=== PATIENT | female | born 1935 | race Caucasian/White ===

== ENCOUNTER 2018-05-13 09:37 | Emergency (ER) | payer MEDICARE, OTHER ==
[2018-05-13 11:23] LABS: Absolute Lymphocytes (CBC) 1.1 K/uL (0.7-4.9); Absolute Monocytes 0.6 K/uL (0.1-1.3); Absolute Neutrophil 4.3 K/uL (1.8-8.0); Basophils % 0.6 % (0-1.3); Eosinophils % 1.9 % (0-4.4); Hematocrit 38.2 % (36.0-45.0); Lymphocytes % 18.4 % (15.3-44.8); MPV 9.4 fL (7.6-11.3); Monocytes % 9.9 % (3.3-12.3); RBC Red Blood Cell Count 4.82 M/uL (3.86-4.86)
[2018-05-13 11:39] LABS: Potassium 3.8 mmol/L (3.5-5.1)
--- NOTE | 2018-05-13 12:47 | RAD REPORT ---
EXAM DESCRIPTION: CTAbdomen Pelvis W Contrast - 05/13/2018 12:31 pm CLINICAL HISTORY: Abdominal pain. r/o bowel obstruction;Constipation COMPARISON: No comparisons TECHNIQUE: Biphasic CT imaging of the abdomen and pelvis was performed with 100 ml non-ionic IV cont rast. All CT scans are performed using dose optimization technique as appropriate and may include automated exposure control or mA/KV adjustment according to patient size. FINDINGS: The lung bases are clear.Small hiatal hernia. Diffuse fatty liver is present with several small low-density lesions present. No intrahepatic biliar y dilatation. Spleen, pancreas, adrenal glands and kidneys are within normal limits. No bowel obstruction, free air, free fluid or abscess. Scattered colonic diverticulosis. The appendix is normal. No evidence of significant lymphadenopathy. Bilateral hip arthroplasties are noted which limits pelvic assessment. IMPRESSION: No acute intra-abdominal or pelvic finding.
--- NOTE | 2018-05-13 13:00 | EDPHYS ---
Physician Documentation [facility] Name: Guerda Vásquez Age: 82 yrs Sex: Female : 1935 Arrival Date: 05/13/2018 Time: 09:41 Bed 13 Private MD: out of town, doctor ED Physician Reji Sosa HPI: 05/13 12:53 This 82 yrs old Female presents to ER via Ambulatory with complaints of kb Constipation. 12:53 The patient presents to the emergency department with constipation. Onset: The kb symptoms/episode began/occurred 10 day(s) ago. Possible causes: unknown. The symptoms are aggravated by nothing. The symptoms are alleviated by laxatives. Associated signs and symptoms: Pertinent positives: constipation, Pertinent negatives: abdominal pain, anorexia, belching, diarrhea, dysuria, fever, flatulence, GI bleeding, hematuria, nausea, vaginal discharge, vomiting. Severity of symptoms: At their worst the symptoms were moderate in the emergency department the symptoms are unchanged. The patient has not experienced similar symptoms in the past. The patient has not recently seen a physician. 12:59 Pt reports constipation for about 10 days. States she had some bloody discharge with kb stool 10 days ago, but none since then. States she has taken a few laxatives and has had small bowel movements, but wants to make sure she doesn't have an obstruction.. Historical: - Allergies: 10:28 ambien; ph - PMHx: 10:28 Hypothyroidism; Diabetes - NIDDM; Hypertension; ph - PSHx: 10:28 Hysterectomy; hip sx; ph - Ebola Screening: : No symptoms or risks identified at this time. ROS: 12:52 Constitutional: Negative for fever, chills, and weight loss, Cardiovascular: Negative kb for chest pain, palpitations, and edema, Respiratory: Negative for shortness of breath, cough, wheezing, and pleuritic chest pain, Back: Negative for injury and pain, : Negative for injury, bleeding, discharge, and swelling, MS/Extremity: Negative for injury and deformity, Skin: Negative for injury, rash, and discoloration, Neuro: Negative for headache, weakness, numbness, tingling, and seizure. 12:52 Abdomen/GI: Positive for constipation, Negative for abdominal pain, nausea and vomiting, diarrhea, abdominal cramps, abdominal distension, anorexia. Exam: 12:50 Constitutional: This is a well developed, well nourished patient who is awake, alert, kb and in no acute distress. Head/Face: Normocephalic, atraumatic. Chest/axilla: Normal chest wall appearance and motion. Nontender with no deformity. No lesions are appreciated. Cardiovascular: Regular rate and rhythm with a normal S1 and S2. No gallops, murmurs, or rubs. Normal PMI, no JVD. No pulse deficits. Respiratory: Lungs have equal breath sounds bilaterally, clear to auscultation and percussion. No rales, rhonchi or wheezes noted. No increased work of breathing, no retractions or nasal flaring. Abdomen/GI: Soft, non-tender, with normal bowel sounds. No distension or tympany. No guarding or rebound. No evidence of tenderness throughout. Back: No spinal tenderness. No costovertebral tenderness. Full range of motion. Skin: Warm, dry with normal turgor. Normal color with no rashes, no lesions, and no evidence of cellulitis. MS/ Extremity: Pulses equal, no cyanosis. Neurovascular intact. Full, normal range of motion. Neuro: Awake and alert, GCS 15, oriented to person, place, time, and situation. Cranial nerves II-XII grossly intact. Motor strength 5/5 in all extremities. Sensory grossly intact. Cerebellar exam normal. Normal gait. Vital Signs: 10:27 BP 183 / 98; Pulse 92; Resp 18; Temp 97.7; Pulse Ox 100% on R/A; Weight 68.04 kg; ph Height 5 ft. 2 in. (157.48 cm); Pain 0/10; 13:19 BP 118 / 92; Pulse 85; Resp 18; Pulse Ox 99% ; aj1 10:27 Body Mass Index 27.44 (68.04 kg, 157.48 cm) ph MDM: 10:25 Patient medically screened. kb 12:50 Data reviewed: vital signs, nurses notes. Data interpreted: Pulse oximetry: on room air kb is 100 %. Interpretation: normal. Counseling: I had a detailed discussion with the patient and/or guardian regarding: the historical points, exam findings, and any diagnostic results supporting the discharge/admit diagnosis, lab results, radiology results, the need for outpatient follow up, a family practitioner, to return to the emergency department if symptoms worsen or persist or if there are any questions or concerns that arise at home. 05/13 10:37 Order name: Basic Metabolic Panel; Complete Time: 11:51 kb 05/13 10:37 Order name: CBC with Diff; Complete Time: 11:28 kb 05/13 10:37 Order name: IV Saline Lock; Complete Time: 11:29 kb 05/13 10:37 Order name: Labs collected and sent; Complete Time: 11:29 kb 05/13 10:37 Order name: CT Abd/Pelvis - W/Contrast; Complete Time: 12:48 kb Administered Medications: No medications were administered Disposition: 05/13/18 12:59 Discharged to Home. Impression: Constipation - resovled. - Condition is Stable. - Discharge Instructions: Constipation, Adult, Hdno-ry-[id number]. - Medication Reconciliation Form, Thank You Letter, Antibiotic Education, Prescription Opioid Use form. - Follow up: Emergency Department; When: As needed; Reason: Worsening of condition. Follow up: Private Physician; When: 2 - 3 days; Reason: Recheck today's complaints, Continuance of care, Re-evaluation by your physician. Addendum: 05/15/2018 15:26 Co-signature as Attending Physician, Reji Sosa MD. m a2 Signatures: Dispatcher [employer] Rima Mcdonald, CAN-C MOTORBOAT MECHANIC INBOARD/OUTBOARD-Madeleine Perez RN RN aj1 Jacy Carlson RN RN Reji Jiang MD MD ma2 Corrections: (The following items were deleted from the chart) 05/13 13:21 12:59 05/13/2018 12:59 Discharged to Home. Impression: Constipation - resovled. aj1 Condition is Stable. Forms are Medication Reconciliation Form, Thank You Letter, Antibiotic Education, Prescription Opioid Use. Follow up: Emergency Department; When: As needed; Reason: Worsening of condition. Follow up: Private Physician; When: 2 - 3 days; Reason: Recheck today's complaints, Continuance of care, Re-evaluation by your physician. kb
--- NOTE | 2018-05-13 13:00 | ER ---
Nurse's Notes [facility] Name: Guerda Vásquez Age: 82 yrs Sex: Female : 1935 Arrival Date: 05/13/2018 Time: 09:41 Bed 13 Private MD: out of town, doctor Diagnosis: Constipation-resovled Presentation: 05/13 10:24 Presenting complaint: Patient states: Bright red blood in stool 10 days ago, abdominal ph bloating and constipation today, denies blood in stool at this time, also denies N/V or fever. Transition of care: patient was not received from another setting of care. Onset of symptoms was May 13, 2018. Risk Assessment: Do you want to hurt yourself or someone else? Patient reports no desire to harm self or others. Care prior to arrival: None. 10:24 Method Of Arrival: Ambulatory ph 10:24 Acuity: STEFF 3 ph 13:19 Initial Sepsis Screen: Does the patient meet any 2 criteria? No. Patient's initial aj1 sepsis screen is negative. Does the patient have a suspected source of infection? No. Patient's initial sepsis screen is negative. Historical: - Allergies: 10:28 ambien; ph - PMHx: 10:28 Hypothyroidism; Diabetes - NIDDM; Hypertension; ph - PSHx: 10:28 Hysterectomy; hip sx; ph - Ebola Screening: : No symptoms or risks identified at this time. Screenin:30 Abuse screen: Denies threats or abuse. Denies injuries from another. Nutritional aj1 screening: No deficits noted. Tuberculosis screening: No symptoms or risk factors identified. Fall Risk None identified. Assessment: 10:30 General: Appears in no apparent distress. comfortable, Behavior is calm, cooperative, aj1 appropriate for age. Pain: Denies pain. Neuro: Level of Consciousness is awake, alert, obeys commands, Oriented to person, place, time, situation. Cardiovascular: Patient's skin is warm and dry. Respiratory: Airway is patent Respiratory effort is even, unlabored, Respiratory pattern is regular, symmetrical. GI: Abdomen is non-distended, Bowel sounds present X 4 quads. Abd is soft X 4 quads Reports bloating, constipation. : No signs and/or symptoms were reported regarding the genitourinary system. EENT: No signs and/or symptoms were reported regarding the EENT system. Derm: No signs and/or symptoms reported regarding the dermatologic system. Skin is pink, warm \T\ dry. normal. Musculoskeletal: No signs and/or symptoms reported regarding the musculoskeletal system. Circulation, motion, and sensation intact. 11:39 Reassessment: Patient appears in no apparent distress at this time. No changes from aj1 previously documented assessment. Patient and/or family updated on plan of care and expected duration. Pain level reassessed. Patient is alert, oriented x 3, equal unlabored respirations, skin warm/dry/pink. 12:42 Reassessment: Patient appears in no apparent distress at this time. No changes from aj1 previously documented assessment. Patient and/or family updated on plan of care and expected duration. Pain level reassessed. Patient is alert, oriented x 3, equal unlabored respirations, skin warm/dry/pink. 13:18 Reassessment: Patient appears in no apparent distress at this time. No changes from aj1 previously documented assessment. Patient and/or family updated on plan of care and expected duration. Pain level reassessed. Patient is alert, oriented x 3, equal unlabored respirations, skin warm/dry/pink. Vital Signs: 10:27 BP 183 / 98; Pulse 92; Resp 18; Temp 97.7; Pulse Ox 100% on R/A; Weight 68.04 kg; ph Height 5 ft. 2 in. (157.48 cm); Pain 0/10; 13:19 BP 118 / 92; Pulse 85; Resp 18; Pulse Ox 99% ; aj1 10:27 Body Mass Index 27.44 (68.04 kg, 157.48 cm) ph ED Course: 09:41 Patient arrived in ED. mr 09:42 out of town, doctor is Private Physician. mr 10:25 Rima Najera FNP-C is PHCP. kb 10:25 Reji Sosa MD is Attending Physician. kb 10:27 Triage completed. ph 10:28 Madeleine Summers RN is Primary Nurse. aj1 10:28 Arm band placed on Patient placed in an exam room. ph 10:30 Patient has correct armband on for positive identification. aj1 10:30 No provider procedures requiring assistance completed. aj1 11:26 Inserted saline lock: 20 gauge in left forearm, using aseptic technique. hb 12:31 CT completed. Patient tolerated procedure well. Patient moved to CT via wheelchair. sj Patient moved back from CT. 12:32 CT Abd/Pelvis - W/Contrast In Process Unspecified. EDMS 13:20 IV discontinued, intact, bleeding controlled, No redness/swelling at site. Pressure aj1 dressing applied. Administered Medications: No medications were administered Outcome: 12:59 Discharge ordered by . cuca 13:20 Discharged to home ambulatory, with family. aj1 13:20 Condition: good 13:20 Discharge instructions given to patient, Instructed on discharge instructions, follow up and referral plans. Demonstrated understanding of instructions, follow-up care. 13:21 Patient left the ED. aj1 Signatures: Dispatcher [employer] EDMS Rima Najera, CANADIAN BACON TIER-C CANADIAN BACON TIER-Madeleine Perez RN RN aj1 Nina Rayo Garrett, Jacy Crain RN RN Lizeth Ayala RN RN Corrections: (The following items were deleted from the chart) 12:30 12:29 Reassessment: Patient appears in no apparent distress at this time. No changes aj1 from previously documented assessment. Patient and/or family updated on plan of care and expected duration. Pain level reassessed. Patient is alert, oriented x 3, equal unlabored respirations, skin warm/dry/pink. aj1
== END 2018-05-13 13:21 | disposition home or self-care (01) ==
LOC: ER 09:37
DX: K59.00 Constipation, unspecified (principal); I10 Essential (primary) hypertension; Z88.8 Allergy status to other drugs, medicaments and biological substances
CPT/HCPCS: 36415; 74177; 80048; 85025; 99284; Q9967

== ENCOUNTER 2021-03-17 18:16 | Inpatient (IN) | payer OTHER ==
[2021-03-17 18:43] LABS: Absolute Lymphocytes (CBC) 1.2 K/uL (0.7-4.9); Basophils % 0.4 % (0-1.3); Hematocrit 34.3 % (36.0-45.0); Lymphocytes % 11.2 % (15.3-44.8); MPV 9.6 fL (7.6-11.3); RBC Red Blood Cell Count 4.28 M/uL (3.86-4.86)
[2021-03-17 18:53] LABS: Protime INR 0.99
--- NOTE | 2021-03-17 18:56 | RAD REPORT ---
EXAM DESCRIPTION: CT - CTHCSPWOC - 03/17/2021 6:47 pm CLINICAL HISTORY: Altered mental status COMPARISON: No comparisons TECHNIQUE: Axial 5 mm thick images of the head were obtained. Axial 2 mm thick images of the cervic al spine were obtained with sagittal and coronal reconstruction images generated and reviewed. All CT scans are performed using dose optimization technique as appropriate and may include automated exposure control or mA/KV adjustment according to patient size. FINDINGS: No intracranial hemorrhage, mass, edema or acute intracranial finding. No suspicion for ac [place] infarction. No extra-axial fluid collections. Mastoid air cells are clear. There is mucosal thick ening in the left maxillary sinus. Right maxillary sinus is fully opacified with thickened sclerotic sinus murry. There is extension mucosal changes into the right nasal passage, possibly polyposis. No globe or orbit abnormality seen. Cervical body height and alignment are normal. C5-6 disc space narrowing present. Prominent facet yahaira nt degenerative change present at multiple levels. Left foraminal stenosis results at C4-5. No fractu re or acute bony abnormality. Central canal detail is inherently limited. No paraspinal mass or hematoma. IMPRESSION: Negative CT head examination for acute or significant finding. Chronic right maxillary sinusitis with possible polyposis extending into the right nasal passage. Negative CT cervical spine examination for acute or significant finding. Degenerative changes are pr esent most pronounced at C5-6.
[2021-03-17 19:24] LABS: ALT/SGPT 21 U/L (12-78); AST/SGOT 28 U/L (15-37); Albumin 3.5 g/dL (3.4-5.0); Alkaline Phosphatase 91 U/L (45-117); Amylase 66 U/L (25-115); BUN Blood Urea Nitrogen 10 mg/dL (7-18); Bicarbonate 17 mmol/L (21-32); Bilirubin Direct 0.2 mg/dL (0-0.2); Bilirubin Total 0.8 mg/dL (0.2-1.0); CKMB Creatine Kinase MB 4.2 ng/mL (1.0-3.6); Creatine Phosphokinase 315 U/L (26-192); Glucose Level 196 mg/dL (74-106); Lipase 64 U/L (73-393); Potassium 3.6 mmol/L (3.5-5.1); Protein, Total 7.9 g/dL (6.4-8.2); Troponin (Emerg Dept Use Only) < 0.02 ng/mL (0.0-0.045)
[2021-03-17 19:26] LABS: Sodium Level 119 mmol/L (136-145)
--- NOTE | 2021-03-17 19:33 | RAD REPORT ---
EXAM DESCRIPTION: RAD - Chest Single View - 03/17/2021 7:01 pm CLINICAL HISTORY: Altered mental status COMPARISON: None TECHNIQUE: AP portable chest image was obtained 03/17/2021 7:01 pm . FINDINGS: Lung volumes are low. Stranding at the left base is favored to be atelectasis or possibly scarring. Interstitial infiltrate is possible if there are corresponding clinical findings. No dense consolidation to suspect bacterial pneumonia. No failure or volume overload. Heart and vasculature ar e normal. No measurable pleural effusion and no pneumothorax. No acute bony abnormality seen. No acut e aortic findings suspected. IMPRESSION: Baseline chest examination shows interstitial stranding left base favored to be scarring or atelectasis. Left base viral infiltrate is possible and can be correlated with clinical presentation.
--- NOTE | 2021-03-17 19:45 | EDPHYS ---
Physician Documentation [facility] Name: Guerda Vásquez Age: 85 yrs Sex: Female : 1935 Arrival Date: 03/17/2021 Time: 18:19 Bed 4 Private MD: ED Physician Elisa Cortez HPI: 03/17 18:20 This 85 yrs old Female presents to ER via Unassigned with complaints of kdr Seizure. 18:20 The patient presents after having a single isolated seizure, that lasted an unknown kdr period of time. Character of seizure(s): Loss of consciousness: the patient experienced loss of consciousness, Motor activity: generalized, Began in her hand and move more globally, Apnea: the patient experienced apnea, Patient became bradycardic and hypotensive briefly. EMS also reports that she was hypoxic for a short period of time with her saturations less than 50. She was immediately augmented with [id number].. Seizure onset: just prior to arrival. Context: the seizure(s) was witnessed, by EMS personnel, occurred In ambulance. Seizure Hx: the patient has no previous seizure history. Associated injury: The patient did not suffer any apparent associated injury. EMS care: supplemental oxygen, Supportive care. Current symptoms: confusion. It is unknown whether or not the patient has had similar symptoms in the past. It is unknown whether or not the patient has recently seen a physician. The patient was brought from home where she was living with her son who reported that she was altered since last evening. She is also had some intermittent nausea and vomiting. EMS reports that she vomited on the ambulance in route to the hospital. Historical: - Allergies: 18:21 ambien; bp - PMHx: 18:21 Diabetes - NIDDM; Hypertension; Hypothyroidism; bp - Immunization history:: Adult Immunizations unknown. - Social history:: Smoking status: unknown. ROS: 18:20 Constitutional: Unable to obtain secondary to altered mental status and postictal kdr status 18:20 Unable to obtain ROS due to altered mental status. Exam: 18:22 Constitutional: This is a well developed, well nourished patient who is in apparent kdr postictal state with mild distress. Head/Face: Normocephalic, atraumatic. Eyes: Pupils equal round and reactive to light, extra-ocular motions intact. Lids and lashes normal. Conjunctiva and sclera are non-icteric and not injected. Cornea within normal limits. Periorbital areas with no swelling, redness, or edema. Neck: Trachea midline, no thyromegaly or masses palpated, and no cervical lymphadenopathy. Supple, full range of motion without nuchal rigidity, or vertebral point tenderness. No Meningismus. Chest/axilla: Normal chest wall appearance and motion. Nontender with no deformity. No lesions are appreciated. Cardiovascular: Regular rate and rhythm with a normal S1 and S2. No gallops, murmurs, or rubs. Normal PMI, no JVD. No pulse deficits. Respiratory: Lungs have equal breath sounds bilaterally, clear to auscultation and percussion. No rales, rhonchi or wheezes noted. No increased work of breathing, no retractions or nasal flaring. Abdomen/GI: Soft, non-tender, with normal bowel sounds. No distension or tympany. No guarding or rebound. No evidence of tenderness throughout. Back: No spinal tenderness. No costovertebral tenderness. Full range of motion. Skin: Warm, dry with normal turgor. Normal color with no rashes, no lesions, and no evidence of cellulitis. MS/ Extremity: Pulses equal, no cyanosis. Neurovascular intact. Full, normal range of motion. 18:33 ECG was reviewed by the Attending Physician. kdr Vital Signs: 18:21 Pulse 112; Resp 30; Pulse Ox 98% ; Weight 74.84 kg; bp 18:26 BP 183 / 97; Pulse 115; Resp 24 S; Temp 98.0(TE); Pulse Ox 98% on R/A; aa5 18:55 BP 156 / 62; Pulse 90; Resp 16 S; Pulse Ox 78% on R/A; aa5 18:56 Pulse Ox 96% on 2 lpm NC; aa5 Ulices Coma Score: 18:21 Eye Response: spontaneous(4). Verbal Response: none(1). Motor Response: withdraws from bp pain(4). Total: 9. MDM: 19:16 Patient medically screened. sp3 19:40 Data reviewed: vital signs, nurses notes. ED course: Sodium value returned at 119. Will sp3 hold IV fluid bolus and correct slowly with nephrology consultation. With a lactate of 8.6 she is severely dehydrated and will need to be admitted to the hospital. Discussed with hospitalist service will take her under her service as she has no local PCP. Patient is still not fully arousable but showing no signs of seizure activity.. 03/17 18:24 Order name: Amylase, Serum kdr 03/17 18:24 Order name: Basic Metabolic Panel; Complete Time: 19:38 kdr 03/17 18:24 Order name: Blood Culture Adult (2) kdr 03/17 18:24 Order name: CBC with Diff; Complete Time: 19:16 kdr 03/17 18:24 Order name: CPK; Complete Time: 19:38 kdr 03/17 18:24 Order name: Ckmb; Complete Time: 19:38 kdr 03/17 18:24 Order name: LFT's; Complete Time: 19:38 kdr 03/17 18:24 Order name: Lactate; Complete Time: 19:38 kdr 03/17 18:24 Order name: Lipase; Complete Time: 19:38 kdr 03/17 18:24 Order name: Procalcitonin; Complete Time: 19:38 kdr 03/17 18:24 Order name: Protime (+inr); Complete Time: 19:16 kdr 03/17 18:24 Order name: Ptt, Activated; Complete Time: 19:16 kdr 03/17 18:24 Order name: Troponin (emerg Dept Use Only); Complete Time: 19:38 kdr 03/17 18:24 Order name: Urine Microscopic Only; Complete Time: 20:41 kdr 03/17 18:24 Order name: Chest Single View XRAY; Complete Time: 19:38 kdr 03/17 18:24 Order name: CT Head C Spine; Complete Time: 19:16 kdr 03/17 18:25 Order name: Urine Culture kdr 03/17 18:25 Order name: Amylase; Complete Time: 19:38 EDMS 03/17 19:38 Order name: Urine Osmolality; Complete Time: 21:57 la1 03/17 19:38 Order name: Urine Sodium Random; Complete Time: 20:41 la1 03/17 19:38 Order name: Osmolality, Serum; Complete Time: 21:57 la1 03/17 19:38 Order name: TSH; Complete Time: 21:57 la1 03/17 19:38 Order name: T4 Free; Complete Time: 21:57 la1 03/17 19:45 Order name: SARS-COV-2 RT PCR; Complete Time: 21:57 EDMS 03/17 19:52 Order name: Uric Acid la1 03/17 19:53 Order name: Urine Potassium Random; Complete Time: 20:41 la1 03/17 20:48 Order name: Uric Acid; Complete Time: 21:57 EDMS 03/17 22:16 Order name: Lactate Sepsis 2 HR Follow-up EDMS 03/17 18:24 Order name: Accucheck; Complete Time: 18:39 kdr 03/17 18:24 Order name: Cardiac monitoring; Complete Time: 18:39 kdr 03/17 18:24 Order name: EKG - Nurse/Tech; Complete Time: 18:39 kdr 03/17 18:24 Order name: IV Saline Lock - Large Bore; Complete Time: 18:39 kdr 03/17 18:24 Order name: Labs collected and sent; Complete Time: 18:39 kdr 03/17 18:24 Order name: O2 Per Protocol; Complete Time: 18:39 kdr 03/17 18:24 Order name: O2 Sat Monitoring; Complete Time: 18:39 kdr 03/17 18:24 Order name: Urine Dipstick-Ancillary (obtain specimen); Complete Time: 19:06 kdr 03/17 18:24 Order name: [place]; Complete Time: 18:39 kdr 03/17 20:06 Order name: Seizure Precautions; Complete Time: 20:43 la1 EC:33 Rate is 108 beats/min. Rhythm is regular, Sinus tachycardia with No ectopy. QRS Arma is kdr Normal. ME interval is normal. QRS interval is normal. QT interval is normal. Clinical impression: NSR w/ Non-specific ST/T Changes and Sinus tachycardia. Administered Medications: 18:45 Drug: CEREbyx (fosphenytoin) 1 grams Route: IVPB; Site: right wrist; aa5 19:00 Follow up: Response: No adverse reaction; IV Status: Completed infusion aa5 19:42 CANCELLED (Physician Discretion): NS 0.9% (30 ml/kg) 30 ml/kg IV at bolus once; Sepsis bs2 Protocol 20:43 Drug: Sodium Chloride 3 % 150 ml Volume: 500 ml; Route: IV; Rate: 50 ml/hr; Site: right bs2 wrist; Disposition Summary: 03/17/21 19:44 Hospitalization Ordered Hospitalization Status: Inpatient Admission sp3 Provider: Akira Bonilla sp3 Condition: Fair sp3 Problem: new sp3 Symptoms: have worsened sp3 Bed/Room Type: Standard sp3 Location: Intensive Care Unit(03/17/21 20:59) cg Room Assignment: 5-(03/17/21 20:59) cg Diagnosis - Hypo-osmolality and hyponatremia sp3 - Altered mental status, unspecified sp3 - Other seizures sp3 - Dehydration sp3 Forms: - Medication Reconciliation Form sp3 - SBAR form sp3 Signatures: Dispatcher [employer] EDMS Benson Petty MD MD kdr Carmelita Cerda RN RN aa5 Juan Randle, SUPERVISOR COKE HANDLING-C SUPERVISOR COKE HANDLING-Cla1 Lizbeth Barrios RN RN cg Shayan Ingram, GABY RN Elisa Cortez MD MD sp3 Pinky Yeboah, RN RN bs2 Corrections: (The following items were deleted from the chart) 19:42 18:24 NS 0.9% (30 ml/kg) 30 ml/kg IV at bolus once; Sepsis Protocol ordered. [facility] bs2 19:42 19:42 NS 0.9% (30 ml/kg) 30 ml/kg IV at bolus once; Sepsis Protocol ordered. bs2 bs2 19:45 19:01 CORONAVIRUS+MR.LAB.BRZ ordered. EDMT EDMT 20:59 19:44 Telemetry/MedSurg (Inpatient) sp3 20:59 19:44 sp3 cg
--- NOTE | 2021-03-17 19:45 | ER ---
Nurse's Notes [facility] Name: Guerda Vásquez Age: 85 yrs Sex: Female : 1935 Arrival Date: 03/17/2021 Time: 18:19 Bed 4 Private MD: Diagnosis: Hypo-osmolality and hyponatremia;Altered mental status, unspecified;Other seizures;Dehydration Presentation: 03/17 18:20 Chief complaint: EMS states: CALLED OUT FOR AMS, SEIZURE WITNESSED ON SCENE. bp Coronavirus screen: At this time, the client does not indicate any symptoms associated with coronavirus-19. Ebola Screen: No symptoms or risks identified at this time. Initial Sepsis Screen: Does the patient meet any 2 criteria? Altered Mental Status. No. Patient's initial sepsis screen is negative. Does the patient have a suspected source of infection? No. Patient's initial sepsis screen is negative. Risk Assessment: Do you want to hurt yourself or someone else? Patient reports no desire to harm self or others. Onset of symptoms was March 17, 2021 at 18:00. Care prior to arrival: Oxygen administered. via AMBU bag. Activity prior to arrival: confused, loss of consciousness, seizure. 18:20 Method Of Arrival: EMS: [facility] bp 18:20 Acuity: STEFF 2 bp Triage Assessment: 18:21 General: Appears distressed, uncomfortable, obese, Behavior is restless, uncooperative. bp Pain: Unable to use pain scale. Does not appear to understand pain scale. EENT: No deficits noted. Neuro: Level of Consciousness is confused, Oriented to none French Binder are equal bilaterally Moves all extremities. Full function. Cardiovascular: Rhythm is sinus tachycardia. Respiratory: Airway is patent. GI: No signs and/or symptoms were reported involving the gastrointestinal system. : No signs and/or symptoms were reported regarding the genitourinary system. Derm: No deficits noted. Musculoskeletal: No deficits noted. Historical: - Allergies: 18:21 ambien; bp - PMHx: 18:21 Diabetes - NIDDM; Hypertension; Hypothyroidism; bp - Immunization history:: Adult Immunizations unknown. - Social history:: Smoking status: unknown. Screenin:21 Abuse screen: Denies threats or abuse. Denies injuries from another. Nutritional bp screening: No deficits noted. Tuberculosis screening: No symptoms or risk factors identified. Fall Risk No fall in past 12 months (0 pts). Secondary diagnosis (15 points) seizures, IV access (20 points). Ambulatory Aid- None/Bed Rest/Nurse Assist (0 pts). Gait- Impaired (20 pts.). Mental Status- Overestimates/Forgets Limitations (15 pts.). Total [place] Fall Scale indicates High Risk Score (45 or more points). Fall prevention measures have been instituted. Side Rails Up X 2 Placed Close to Nursing Station Frequent Obs/Assessments Occuring As available patient and family educated on Fall Prevention Program and Strategies. Assessment: 18:21 General: SEE TRIAGE NOTE. bp 18:39 Reassessment: Pt to CT via stretcher . aa5 18:39 Reassessment: NS bolus per sepsis protocol on hold per Dr. Petty . aa5 18:45 Reassessment: Pt back from CT scan, pt now calm, resting in bed with eyes closed, aa5 respirations even and unlabored, skin is pink/warm/dry. . 19:00 Reassessment: Pt's family at bedside, pt's family updated about wait time for results . aa5 Vital Signs: 18:21 Pulse 112; Resp 30; Pulse Ox 98% ; Weight 74.84 kg; bp 18:26 BP 183 / 97; Pulse 115; Resp 24 S; Temp 98.0(TE); Pulse Ox 98% on R/A; aa5 18:55 BP 156 / 62; Pulse 90; Resp 16 S; Pulse Ox 78% on R/A; aa5 18:56 Pulse Ox 96% on 2 lpm NC; aa5 Ulices Coma Score: 18:21 Eye Response: spontaneous(4). Verbal Response: none(1). Motor Response: withdraws from bp pain(4). Total: 9. ED Course: 18:19 Patient arrived in ED. bp 18:20 Benson Petty MD is Attending Physician. kdr 18:21 Triage completed. bp 18:21 Arm band placed on. bp 18:21 Patient has correct armband on for positive identification. Placed in gown. Bed in low bp position. Call light in reach. Side rails up X2. Seizure precautions initiated. 18:29 Shayan Ingram, RN is Primary Nurse. bp 18:29 Inserted saline lock: 20 gauge in right wrist, using aseptic technique. Blood collected.bp 18:30 Henderson cath inserted, using sterile technique, 16 Fr., by md, balloon inflated, to aa5 gravity drainage. 18:47 CT Head C Spine In Process Unspecified. EDMS 19:00 Chest Single View XRAY In Process Unspecified. EDMS 19:15 Attending Physician role handed off by eBnson Petty MD sp3 19:15 Elisa Cortez MD is Attending Physician. sp3 19:30 Primary Nurse role handed off by Shayan Ingram RN mw2 19:41 Pinky Yeboah RN is Primary Nurse. bs2 19:44 Akira Bonilla DO is Hospitalizing Provider. sp3 20:43 Uric Acid Sent. bs2 20:43 SARS-COV-2 RT PCR Sent. bs2 20:43 T4 Free Sent. bs2 20:43 TSH Sent. bs2 20:43 Osmolality, Serum Sent. bs2 20:43 Urine Osmolality Sent. bs2 20:43 Amylase, Serum Sent. bs2 20:43 Blood Culture Adult (2) Sent. bs2 21:58 No provider procedures requiring assistance completed. Patient admitted, IV remains in bs2 place. Administered Medications: 18:45 Drug: CEREbyx (fosphenytoin) 1 grams Route: IVPB; Site: right wrist; aa5 19:00 Follow up: Response: No adverse reaction; IV Status: Completed infusion aa5 19:42 CANCELLED (Physician Discretion): NS 0.9% (30 ml/kg) 30 ml/kg IV at bolus once; Sepsis bs2 Protocol 20:43 Drug: Sodium Chloride 3 % 150 ml Volume: 500 ml; Route: IV; Rate: 50 ml/hr; Site: right bs2 wrist; Outcome: 19:44 Decision to Hospitalize by Provider. sp3 21:58 Admitted to ICU accompanied by nurse, via stretcher, room ICU 5, on monitor, Report bs2 called to Lizbeth 21:58 Condition: stable 21:58 Instructed on the need for admit. 23:28 Patient left the ED. bb Signatures: Dispatcher [employer] EDMS Benson Petty MD MD kdr Ballard, Brenda, RN RN bb Carmelita Cerda RN RN aa5 Shayan Ingram, GABY RN Randy Rodriguez mw2 Elisa Cortez MD MD sp3 Pinky Yeboah RN RN bs2 Corrections: (The following items were deleted from the chart) 18:30 18:21 Pulse 112bpm; Resp 30bpm; Pulse Ox 98%; bp bp
[2021-03-17] MEDS ORDERED: FOSPHENYTOIN PE 500 MG/10 ML VIAL ONE (19:53)
[2021-03-17] MEDS ORDERED: NA CHLORIDE 0.9% 100 ML ONE (19:54)
[2021-03-17 19:55] LABS: Urine Bacteria <20 /HPF (<20); Urine RBC NONE SEEN /HPF (NONE SEEN)
--- NOTE | 2021-03-17 20:23 | P.HP ---
Certification for Inpatient Patient admitted to: Inpatient With expected LOS: >2 Midnights Patient will require the following post-hospital care: None Practitioner: I am a practitioner with admitting privileges, knowledge of patient current condition, hospital course, and medical plan of care. Services: Services provided to patient in accordance with Admission requirements found in Title 42 Section 412.3 of the Code of Federal Regulations Patient History Date of Service: 03/17/21 Primary Care Provider: None Reason for admission: Hyponatremia, seizure History of Present Illness: 85-year-old female with history of hypertension, hypothyroidism, diabetes most type II presents emergency department for seizure, altered mental status. Family reports that patient lives at home with her daughter and over the course of last day they noticed that she had a couple episodes of vomiting, diarrhea and altered mental status. Patient does not take any diuretics, seems to have an adequate diet, does not drink alcohol. Patient was evaluated in the emergency department labs were significant for sodium 119 chloride 82 lactic acid 8.6 CPK 315. I was contacted by ED provider for admission to ICU for further evaluation and management. Additional labs ordered, nephrology was contacted by me while patient was in the emergency department. Given patient's altered mental status and recent history of seizure it was recommended that patient receive 3% sodium chloride 150 cc at 50 cc an hour over the course of 3 hours. Will admit to ICU for further evaluation and management of hyponatremia, seizure. - Past Medical/Surgical History -: Hypothyroidism -: Hypertension -: Diabetes mellitus type 2 -: Hysterectomy Psychosocial/ Personal History: Patient lives at home with her daughter - Family History Family History: Reviewed- Non-Contributory - Social History Smoking Status: Never smoker Alcohol use: No CD- Drugs: No Caffeine use: Yes Place of Residence: Home Review of Systems is unable to be obtained Physical Examination - Physical Exam General: Confused HEENT: Atraumatic, Normocephalic, Other (Mucous membranes dry) Neck: Supple Respiratory: Clear to auscultation bilaterally Cardiovascular: No edema, Normal S1 S2 Capillary refill: <2 Seconds Gastrointestinal: Normal bowel sounds Musculoskeletal: No contractures, No erythema, No tenderness Integumentary: No tenderness/swelling, No erythema, No warmth Neurological: Normal strength at 5/5 x4 extr, Normal tone, Sensation intact - Studies Laboratory Data (last 24 hrs) 03/17/21 18:29: PT 11.4, INR 0.99, APTT 31.6 03/17/21 18:29: WBC 10.80, Hgb 11.1 L, Hct 34.3 L, Plt Count 271 03/17/21 18:29: Sodium 119 L*, Potassium 3.6, BUN 10, Creatinine 0.88, Glucose 196 H, Total Bilirubin 0.8, AST 28, ALT 21, Alkaline Phosphatase 91, Amylase 66, Lipase 64 L Assessment and Plan - Plan Assessment: Altered mental status/seizure secondary to severe hyponatremia Diabetes most type II Hypertension Hypothyroidism Plan: Altered mental status/seizure secondary to severe hyponatremia: Sodium 119, case discussed at length with nephrology will continue with 3% sodium chloride infusion 150 cc at 50 cc an hour. We will repeat chemistry, urine electrolytes, urinalysis 1 hour after completion of 3% sodium chloride. We will discuss further with nephrology at that time. Diabetes most type II: A [facility] Accu-Cheks sliding scale insulin. A1c. Hypertension: Obtain and continue medications, patient denies taking any diuretic therapy. Hypothyroidism: Thyroid panel pending, continue home medication. DVT PPX: Lovenox Code status: Full Discharge Plan: Home Plan to discharge in: Greater than 2 days - Advance Directives Does patient have a Living Will: No Does patient have a Durable POA for Healthcare: No - Code Status/Comfort Care Code Status Assessed: Yes (Full code) Critical Care: No Time Spent Managing Pts Care (In Minutes): 55
[2021-03-17 20:48] LABS: Thyroid Stimulating Hormone 5.14 uIU/mL (0.360-3.740)
[2021-03-17] MEDS ORDERED: NA CHLORIDE 3% 500 ML ONE (21:29)
[2021-03-17] MEDS ORDERED: INSULIN -REGULAR HUMAN 50 UNIT/0.5 ML ML SQ SCH (22:01)
[2021-03-17] MEDS ORDERED: ONDANSETRON 4 MG/2 ML VIAL IV PRN (22:01)
[2021-03-18 01:08] LABS: Urine Appearance CLEAR (Clear); Urine Bilirubin NEGATIVE (Negative); Urine Blood NEGATIVE (Negative); Urine Color YELLOW (Yellow); Urine Glucose NEGATIVE (Negative); Urine Protein NEGATIVE (Negative); Urine Specific Gravity <=1.005 (1.005-1.030); Urine Urobilinogen 0.2 mg/dL (0.2-1.0); Urine pH 6.5 (5.0-7.0)
[2021-03-18 01:12] LABS: BUN Blood Urea Nitrogen 9 mg/dL (7-18); Bicarbonate 27 mmol/L (21-32); Glucose Level 160 mg/dL (74-106); Potassium 3.8 mmol/L (3.5-5.1); Sodium Level 129 mmol/L (136-145)
[2021-03-18 01:15] LABS: Urine Microscopic Reflex ORDER UMIC
[2021-03-18 01:18] LABS: Urine Bacteria <20 /HPF (<20); Urine RBC <5 /HPF (NONE SEEN)
[2021-03-18] MEDS ORDERED: D5W 1,000 ML IV SCH ×5 (02:00→21:00)
[2021-03-18 05:17] LABS: Absolute Lymphocytes (CBC) 0.6 K/uL (0.7-4.9); Basophils % 0.3 % (0-1.3); Hematocrit 32.4 % (36.0-45.0); Lymphocytes % 4.3 % (15.3-44.8); MPV 9.7 fL (7.6-11.3); RBC Red Blood Cell Count 4.05 M/uL (3.86-4.86)
[2021-03-18 05:46] LABS: UR SODIUM 27 mmol/L (27-287); Urine Appearance CLEAR (Clear); Urine Bilirubin NEGATIVE (Negative); Urine Blood NEGATIVE (Negative); Urine Color YELLOW (Yellow); Urine Glucose 2+ (Negative); Urine Protein NEGATIVE (Negative); Urine Specific Gravity <=1.005 (1.005-1.030); Urine Urobilinogen 0.2 mg/dL (0.2-1.0); Urine pH 6.5 (5.0-7.0)
[2021-03-18 05:47] LABS: Magnesium 1.9 mg/dL (1.8-2.4); Phosphorus 2.3 mg/dL (2.5-4.9); Potassium 3.4 mmol/L (3.5-5.1)
[2021-03-18 05:54] LABS: UR PROTEIN < 5.0 mg/dL (<11.9)
[2021-03-18 06:04] LABS: Urine Microscopic Reflex ORDER UMIC
[2021-03-18 06:05] LABS: Urine Bacteria <20 /HPF (<20); Urine RBC NONE SEEN /HPF (NONE SEEN)
[2021-03-18] MEDS: INSULIN -REGULAR HUMAN 50 UNIT/0.5 ML ML SQ SCH ×5 (06:18→20:51)
[2021-03-18] MEDS: ENOXAPARIN 40 MG/0.4 ML SQ SCH (07:51)
[2021-03-18 08:29] LABS: Blood Morphology Comment NOT SEEN (NOT SEEN); Platelet Estimate ADEQ
[2021-03-18 09:45] LABS: Potassium 2.8 mmol/L (3.5-5.1)
[2021-03-18] MEDS: POTASSIUM CL 40 MEQ in NA CHLORIDE 0.9% 500 ML IV SCH ×2 (11:06→15:00)
[2021-03-18 11:56] LABS: BUN Blood Urea Nitrogen 6 mg/dL (7-18); Bicarbonate 24 mmol/L (21-32); Glucose Level 87 mg/dL (74-106); Potassium 3.5 mmol/L (3.5-5.1); Sodium Level 128 mmol/L (136-145)
[2021-03-18] MEDS ORDERED: NACHLORIDE 0.45% 1,000 ML IV SCH (12:00)
[2021-03-18 16:30] LABS: BUN Blood Urea Nitrogen 5 mg/dL (7-18); Bicarbonate 21 mmol/L (21-32); Glucose Level 77 mg/dL (74-106); Sodium Level 120 mmol/L (136-145)
[2021-03-18 16:35] LABS: Potassium 2.4 mmol/L (3.5-5.1)
[2021-03-18] MEDS ORDERED: POTASSIUM CL SA 10 MEQ TAB PO ONE (18:00)
[2021-03-18] MEDS ORDERED: GLUCAGON 1 MG/VIAL IM PRN (19:35)
[2021-03-18] MEDS ORDERED: D50W 25 GM/50 ML SYRINGE IV PRN (19:35)
[2021-03-18 19:41] LABS: Albumin 2.9 g/dL (3.4-5.0); Bilirubin Total 0.5 mg/dL (0.2-1.0); Magnesium 1.9 mg/dL (1.8-2.4); Phosphorus 1.9 mg/dL (2.5-4.9); Potassium 4.2 mmol/L (3.5-5.1); Protein, Total 6.4 g/dL (6.4-8.2)
--- NOTE | 2021-03-18 20:04 | CON ---
Date of Consultation: 03/18/2021 Chief Complaint: Hyponatremia associated with hyponatremia hyperosmolar/volume depletion. History Of Present Illness: The patient is an 85-year-old woman with history of hypertension, hypoth yroid, diabetes mellitus type 2. She presented to the emergency room because of seizure, altered men ingrid status. Family noted that 2 days prior to this admission, the patient had vomiting, diarrhea, an d confusion. She does not take diuretic. She denies nonsteroidal anti-inflammatory medications. Sh lucia does not have any history of alcohol intake. The patient was evaluated in the emergency room and w as found to have significant hyponatremia, sodium of 119. Lactic acid was 8.6, chloride 82. CPK 315 , and Nephrology was contacted and it was recommended to give 3% sodium chloride at 50 mL/hour for 3 hours, with total dose of 150 mL. Subsequently, sodium level was checked and it was 129. The patien t at that time, received 1 L of D5W per hour and labs were rechecked. This morning, lab wo rk showed sodium 129, potassium 3.8, chloride 93, CO2 of 27, BUN 9, creatinine 0.59, glucose 160. Se rum osmolality was 239, uric acid 5.0, lactic acid improved to 1.4, calcium was 8.8. Then, in the mo rning, blood work at 5 o'clock showed sodium 127, glucose 301, potassium , chloride 90, CO2 of 27, phosphorus 2.3, magnesium 1.9. Subsequently, glucose was up to 414, sodium 120, potassium 2. 8, chloride 87, and CO2 of 26, BUN 6, creatinine 0.87, and fluids were changed to half-normal saline. Although lab work was done again 11 o'clock in the morning and show sodium 128, potassium 3.5, chlo ride 97, CO2 of 24, BUN 6, creatinine 0.57, and calcium 8.6. Potassium replacement was stopped after blood work showed potassium of 3.5. Lab work at 8 o'clock was contaminated with IV fluids which lexy myers infused during the treatment. The patient remains in ICU. She is more alert. She did not have any seizure activity during this ho spital stay and she is responding to questions although she has some hearing impairment and cannot pr ovide review of systems. She is requesting for regular diet to be reduced, and she will be started o n p.o. intake with hydration by mouth. At this point, the patient is receiving half-normal saline, w hich was ordered by hospitalist. Past Medical History: Hypothyroidism, hypertension, diabetes mellitus, hysterectomy. Family History: No kidney disease in the family. Social History: Denies tobacco, alcohol, illicit drugs. Physical Examination: General: The patient is awake, follows commands. Cardiovascular: S1, S2. No edema. Skin: Warm and dry. Abdomen: Soft. Extremities: Normal sensation and normal strength. Lab Work: WBC 10.8, hemoglobin 11.1, hematocrit 34.3, and platelet count 271. Amylase 66, lipase 64 . Impression And Plan: 1. with seizure activity secondary to hyponatremia. Sodium at this time was 119. The matias ent was treated with 3% of sodium chloride to control hyponatremia. Patient was found to have severe hyponatremia hyperosmolar state and was treated with 3% of sodium chloride. Plan is to continue to adjust IV fluid for gradual correction of hyponatremia. At this point, the patient is asymptomatic a nd IV fluids will be adjusted. The patient may need IV hypotonic fluids to prevent hyponatremia over correction. 2.Hypothyroidism. The thyroid panel was pending. Recommend to check cortisol level in a year. The patient is admitted to ICU. She was screened for COVID and further recommendation will be from prim jeannie team. DAYNE/DEAMRIOL Voice ID: [id number] Report ID: [id number]
[2021-03-18] MEDS ORDERED: DESMOPRESSIN 4 MCG/ML AMP SQ ONE (20:14)
[2021-03-19 02:25] LABS: BUN Blood Urea Nitrogen 7 mg/dL (7-18); Bicarbonate 24 mmol/L (21-32); Glucose Level 98 mg/dL (74-106); Potassium 3.6 mmol/L (3.5-5.1); Sodium Level 131 mmol/L (136-145)
[2021-03-19] MEDS ORDERED: DESMOPRESSIN 4 MCG/ML AMP SQ ONE (02:32)
[2021-03-19] MEDS ORDERED: D5W 1,000 ML IV SCH (02:34)
[2021-03-19 05:30] VITALS: BMI 20.7
[2021-03-19] MEDS: INSULIN -REGULAR HUMAN 50 UNIT/0.5 ML ML SQ SCH ×4 (07:30→20:33)
[2021-03-19 08:03] LABS: Absolute Lymphocytes (CBC) 0.8 K/uL (0.7-4.9); Basophils % 0.5 % (0-1.3); Hematocrit 32.1 % (36.0-45.0); Lymphocytes % 10.6 % (15.3-44.8); MPV 9.4 fL (7.6-11.3); RBC Red Blood Cell Count 4.04 M/uL (3.86-4.86)
[2021-03-19 08:16] LABS: BUN Blood Urea Nitrogen 6 mg/dL (7-18); Bicarbonate 24 mmol/L (21-32); Glucose Level 183 mg/dL (74-106); Magnesium 1.8 mg/dL (1.8-2.4); Phosphorus 1.7 mg/dL (2.5-4.9); Potassium 3.6 mmol/L (3.5-5.1); Sodium Level 126 mmol/L (136-145)
[2021-03-19] MEDS: ENOXAPARIN 40 MG/0.4 ML SQ SCH (08:39)
[2021-03-19] MEDS: carvediloL 6.25 MG TAB PO SCH ×2 (11:14→20:15)
[2021-03-19] MEDS ORDERED: MAGNESIUM SULFATE 1 gm IVPB 1 GM/100 ML BAG IV ONE (11:15)
[2021-03-19] MEDS: FUROSEMIDE 20 MG TABLET PO SCH (11:18)
[2021-03-19] MEDS ORDERED: POTASSIUM PHOS 20 MM in NA CHLORIDE 0.9% 500 ML IV ONE (11:30)
[2021-03-19] MEDS: SODIUM CHLORIDE 1 GM TAB PO SCH ×2 (12:01→16:44)
--- NOTE | 2021-03-19 14:47 | PN ---
Date of Progress Note: 03/19/2021 Subjective: The patient was admitted with symptomatic hyponatremia and seizure. The patient was sta rted on 3%, over corrected, started on D5. Then, the patient received a couple of doses of DDAVP yes terday. Physical Examination: Vital Signs: When I saw the patient; blood pressure 176/55, pulse of 91, afebrile. The patient had urine output of 2400. The patient negative of 1 L. Chest: Clear to auscultation. Heart: S1, S2. Regular. Abdomen: Soft, nontender. Extremities: No edema. Laboratory Data: WBC 7.2, H and H 10.6/32.1. Sodium 126, trending down from at 1 o'clock over 6 ion rs, trending down to 126 from 131. Potassium 3.6, bicarb 24, BUN 6, creatinine 0.5, calcium 8.5, daniel sphorus 1.7, magnesium 1.8. Cortisol 33. TSH 5.1. Urine electrolytes; sodium of 29, potassium of 3 , specific gravity less than 1.005. The patient's home medication used to be only enalapril. The pa jose denied taking any nonsteroidal. The patient's uric acid upon presentation is 4.6. Current Medications: The patient on include; 1.Lovenox. 2.Zofran. 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 Questionable with presence of that specific gravity in the urine. Could be diluted urine, but again her urine sodium is 27. T he patient does not look to me as prerenal or dehydration. The patient received DDAVP over the night , but yet has urine output of 2400. I am going to go ahead and start the patient on salt tablet 1 g b.i.d. and Lasix 20 and we will follow up the patient. The patient is going to have lab at 1 o'clock , then we will repeat lab with urine electrolyte in the evening. The patient will follow up improvem ent. 2.Hypokalemia, hypophosphatemia. We will supplement. 3.Hypomagnesemia. We will supplement. 4.Hypertension, not controlled. Given the hyponatremia, I will avoid SOHAIL inhibitor. We will start the patient on carvedilol and we will follow up the patient. The patient is going to also be started on Lasix. SHABANA Voice ID: [id number] Report ID: [id number]
[2021-03-19 17:04] LABS: Potassium 4.7 mmol/L (3.5-5.1)
[2021-03-19 20:07] LABS: Potassium 3.8 mmol/L (3.5-5.1)
[2021-03-20 02:13] LABS: Absolute Lymphocytes (CBC) 0.9 K/uL (0.7-4.9); Basophils % 0.5 % (0-1.3); Hematocrit 31.7 % (36.0-45.0); Lymphocytes % 11.6 % (15.3-44.8); MPV 9.3 fL (7.6-11.3)
[2021-03-20 02:20] LABS: BUN Blood Urea Nitrogen 8 mg/dL (7-18); Bicarbonate 27 mmol/L (21-32); Glucose Level 138 mg/dL (74-106); Magnesium 1.9 mg/dL (1.8-2.4); Phosphorus 2.9 mg/dL (2.5-4.9); Potassium 3.4 mmol/L (3.5-5.1); Sodium Level 126 mmol/L (136-145)
[2021-03-20 07:17] LABS: BUN Blood Urea Nitrogen 9 mg/dL (7-18); Bicarbonate 26 mmol/L (21-32); Glucose Level 113 mg/dL (74-106); Potassium 3.9 mmol/L (3.5-5.1); Sodium Level 126 mmol/L (136-145)
[2021-03-20] MEDS: INSULIN -REGULAR HUMAN 50 UNIT/0.5 ML ML SQ SCH ×4 (07:30→20:08)
[2021-03-20] MEDS ORDERED: POTASSIUM 25 MEQ EFFERV TAB PO ONE (08:00)
[2021-03-20] MEDS: ENOXAPARIN 40 MG/0.4 ML SQ SCH (08:22)
[2021-03-20] MEDS: SODIUM CHLORIDE 1 GM TAB PO SCH ×3 (08:22→20:07)
[2021-03-20] MEDS: FUROSEMIDE 20 MG TABLET PO SCH (08:23)
[2021-03-20] MEDS: carvediloL 6.25 MG TAB PO SCH (08:23)
[2021-03-20] MEDS ORDERED: POTASSIUM CL SA 10 MEQ TAB PO ONE (10:07)
[2021-03-20] MEDS ORDERED: FUROSEMIDE 20 MG TABLET PO SCH (10:46)
--- NOTE | 2021-03-20 11:05 | P.PN ---
Subjective Date of Service: 03/18/21 Correcting sodium. Apparently was corrected a little too quickly initially so we will change to D5 water. Monitor sodium level. Probably change to half NS. Review of Systems 10-point ROS is otherwise unremarkable Physical Examination - Vital Signs Temperature: 97.5 F Blood Pressure: 151/67 Pulse: 83 Respirations: 16 Pulse Ox (%): 98 - Physical Exam General: Alert, In no apparent distress, Oriented x3 Respiratory: Clear to auscultation bilaterally, Normal air movement Cardiovascular: Regular rate/rhythm, Normal S1 S2, No murmurs Gastrointestinal: Normal bowel sounds, Soft and benign, Non-distended, No tenderness Musculoskeletal: No clubbing, No swelling, No tenderness Neurological: Sensation intact, Cranial nerves 3-12 intact - Studies Microbiology Data (last 24 hrs): 03/17/21 18:29 Blood - Blood Blood Culture Gram Stain - Final 03/17/21 18:55 Catheterized Urine [place] Count - Final No growth. 03/17/21 18:55 Catheterized Urine - Final No growth. Medications List Reviewed: Yes Assessment & Plan - Problems (Diagnosis) (1) Hyponatremia Current Visit: Yes Status: Acute (2) COVID-19 Current Visit: Yes Status: Acute - Plan Plan: 1. Correct sodium slowly-10meq/day. 2. Monitor labs every 6 hr 3. Nephrology consultation 4. Monitor neurologic status closely 5. Physical therapy 6. GI and DVT prophylaxis Discharge Plan: Home Plan to discharge in: Greater than 2 days - Advance Directives Does patient have a Living Will: No Does patient have a Durable POA for Healthcare: No - Code Status/Comfort Care Code Status Assessed: Yes Code Status: Full Code Critical Care: No Time Spent Managing PTS Care (In Minutes): 45
--- NOTE | 2021-03-20 11:08 | P.PN ---
Date of Service: 03/20/21 Subjective Patient doing better. Clinically symptoms are improving. More awake and alert. Will get patient out of bed and ambulate. Review of Systems 10-point ROS is otherwise unremarkable Physical Examination - Vital Signs Reviewed - Physical Exam General: Alert, In no apparent distress, Oriented x2 Respiratory: Clear to auscultation bilaterally, Normal air movement Cardiovascular: Regular rate/rhythm, Normal S1 S2, No murmurs Gastrointestinal: Normal bowel sounds, Soft and benign, Non-distended, No tender ness Musculoskeletal: No clubbing, No swelling, No tenderness Neurological: Sensation intact, Cranial nerves 3-12 intact; mentation improving Assessment & Plan - Problems (Diagnosis) (1) Hyponatremia secondary to SIADH Current Visit: Yes Status: Acute (2) COVID-19 Current Visit: Yes Status: Acute - Plan Continue with plan of care as mentioned below: 1. Sodium stable. Continue with sodium tablets and diuretics 2. Monitor sodium daily 3. Nephrology consultation appreciated 4. Monitor neurologic status closely; out of bed and ambulate 5. May get physical therapy consultation if weak 6. GI and DVT prophylaxis
--- NOTE | 2021-03-20 11:08 | P.PN ---
Date of Service: 03/19/21 Subjective No new changes. Patient said mentation is better. Review of Systems 10-point ROS is otherwise unremarkable Physical Examination - Vital Signs Reviewed - Physical Exam General: Alert, In no apparent distress, Oriented x2 Respiratory: Clear to auscultation bilaterally, Normal air movement Cardiovascular: Regular rate/rhythm, Normal S1 S2, No murmurs Gastrointestinal: Normal bowel sounds, Soft and benign, Non-distended, No tenderness Musculoskeletal: No clubbing, No swelling, No tenderness Neurological: Sensation intact, Cranial nerves 3-12 intact; mentation improving Assessment & Plan - Problems (Diagnosis) (1) Hyponatremia Current Visit: Yes Status: Acute (2) COVID-19 Current Visit: Yes Status: Acute - Plan Continue with plan of care as mentioned below: 1. Correct sodium slowly-10meq/day. Sodium improving. 2. Monitor labs every 6 hr 3. Nephrology consultation 4. Monitor neurologic status closely 5. Physical therapy 6. GI and DVT prophylaxis Discharge Plan: Home Plan to discharge in: Greater than 2 days - Advance Directives Does patient have a Living Will: No Does patient have a Durable POA for Healthcare: No - Code Status/Comfort Care Code Status Assessed: Yes Code Status: Full Code Critical Care: No Time Spent Managing PTS Care (In Minutes): 45
--- NOTE | 2021-03-20 13:24 | PN ---
Date of Progress Note: 03/20/2021 Subjective: The patient was admitted with seizure and hyponatremia, sodium was down to 119. The patient found to have low uric acid. The patient was started on salt tablet yesterday. The patient received DDAVP yesterday morning. Today, the patient more awake. Objective: Vital Signs: Blood pressure 151/67, pulse of 83, afebrile. The patient had good urine output of 2400, even balance. Chest: Clear to auscultation. Heart: S1, S2. Regular. Abdomen: Soft, nontender. Extremities: No edema. Neuro: Alert, pleasantly confused. No focality. Laboratory Data: Sodium 126, potassium 3.9, bicarb 26, BUN 9, creatinine 0.6, calcium 8.5, phosphorus 2.9, magnesium 1.9. H and H 10.5/31.7. Current Medications: The patient on include carvedilol 12.5 b.i.d., Lovenox, Lasix 20 daily, magnesium 1 g daily, salt tablet 1 g b.i.d. Assessment And Plan: 1. Hyponatremia secondary to SIADH complicated with seizure, sodium appropriate rise. I am going to go ahead and increase salt tablet to 1 g t.i.d., continue on the Lasix. 2. Hypokalemia. We will supplement. 3. Hypomagnesemia, hypophosphatemia, status post supplement. 4. Hypertension, controlled, not optimal. I am going to increase carvedilol. 5. Seizure secondary to hyponatremia, resolved. The patient cleared from the Renal standpoint to move to the floor. Time spent examining the patient, [id number], placing orders, reviewing data, discussing with the steam finisher including Nursing, discussed with other subspecialty including Critical Care and hospitalist 45 minutes. SHABANA Voice ID: [id number] Report ID: [id number] BRITTANIE
[2021-03-20] MEDS: carvediloL 12.5 MG TAB PO SCH (20:07)
[2021-03-21 04:51] LABS: Absolute Lymphocytes (CBC) 0.7 K/uL (0.7-4.9); Basophils % 0.2 % (0-1.3); Hematocrit 33.7 % (36.0-45.0); Lymphocytes % 6.4 % (15.3-44.8); MPV 9.6 fL (7.6-11.3); RBC Red Blood Cell Count 4.24 M/uL (3.86-4.86)
[2021-03-21 05:04] LABS: Albumin 2.5 g/dL (3.4-5.0); Phosphorus 2.8 mg/dL (2.5-4.9); Potassium 3.7 mmol/L (3.5-5.1)
[2021-03-21 05:50] LABS: Urine Appearance CLOUDY (Clear); Urine Bilirubin NEGATIVE (Negative); Urine Blood 2+ (Negative); Urine Color YELLOW (Yellow); Urine Glucose NEGATIVE (Negative); Urine Protein NEGATIVE (Negative); Urine Specific Gravity 1.015 (1.005-1.030); Urine pH 6.5 (5.0-7.0)
[2021-03-21 05:53] LABS: Urine Microscopic Reflex ORDER UMIC
[2021-03-21 06:01] LABS: Urine Bacteria >50 /HPF (<20)
[2021-03-21 06:02] LABS: Urine Urothelial Cells <5 /HPF (NONE SEEN)
[2021-03-21] MEDS: INSULIN -REGULAR HUMAN 50 UNIT/0.5 ML ML SQ SCH ×4 (07:30→21:00)
[2021-03-21] MEDS: FUROSEMIDE 20 MG TABLET PO SCH (08:08)
[2021-03-21] MEDS: ENOXAPARIN 40 MG/0.4 ML SQ SCH (08:09)
[2021-03-21] MEDS: carvediloL 12.5 MG TAB PO SCH (08:14)
[2021-03-21] MEDS: SODIUM CHLORIDE 1 GM TAB PO SCH ×3 (09:40→20:06)
--- NOTE | 2021-03-21 11:48 | PN ---
Date of Progress Note: 03/21/2021 Subjective: The patient was admitted with hyponatremia, symptomatic with seizure. The patient received 3%, sodium corrected. Then because of the over- correction, started on D5. The patient received 2 doses of DDAVP 48 hours ago. The patient was started on salt tablet, russel gradually from 1 g b.i.d. to 1 g t.i.d. Sodium in the last 24 hours started trending up and stabilized. The patient is completely asymptomatic. The patient also has COVID. Physical Examination: General: When I saw the patient; the patient is lying in bed, comfortable, pleasantly confused. Vital Signs: Blood pressure 114/40, pulse of 73. Chest: Clear to auscultation. Heart: S1, S2. Regular. Abdomen: Soft, nontender. Extremities: No edema. Neuro: Alert. No focality. No tremor. Laboratory Data: WBC 10.4, H and H 11.1/33.7, platelets 229. Sodium 129 and trending up, potassium 4, bicarb 28, BUN 13, creatinine 0.7, calcium 9.2, albumin 2.5. Urinalysis; specific gravity of 1.015 and trending up, WBC of 50. The patient had Henderson. Urine sodium down to 35, urine potassium of 48. Current Medications: The patient on include; 1. Carvedilol 12.5 b.i.d. 2. Lasix 20 daily. 3. Zofran. 4. Insulin. 5. Salt tablet 1 g t.i.d. Assessment And Plan: 1. Hyponatremia secondary to syndrome of inappropriate antidiuretic hormone secretion. Recovering. Sodium is trending up nicely. I am going to continue the patient on current dose of salt tablet and Lasix and we will monitor the patient. 2. Hypertension, currently blood pressure on the lower side. We will go ahead and decrease back the carvedilol to 6.25 b.i.d., keep monitoring the patient, keep holding any SOHAIL inhibitor or ARB. 3. Hypokalemia, status post supplement, resolved. 4. Syndrome of inappropriate antidiuretic hormone secretion secondary to COVID pneumonia as above. 5. Seizure secondary to syndrome of inappropriate antidiuretic hormone secretion, resolved. We will follow up with primary. Time spent examining the patient, [id number], placing orders, reviewing data, discussing with the team primary care physician including Nursing, discussed with other subspecialty including Critical Care and hospitalist 45 minutes. SHABANA Voice ID: [id number] Report ID: [id number] BRITTANIE
[2021-03-21] MEDS: carvediloL 6.25 MG TAB PO SCH (20:06)
--- NOTE | 2021-03-22 01:16 | P.PN ---
Date of Service: 03/21/21 Subjective Patient was able to go to the chair today. Patient waking up and ambulating. Strength is improved. Arrange for home health Review of Systems 10-point ROS is otherwise unremarkable Physical Examination - Vital Signs Reviewed - Physical Exam General: Alert, In no apparent distress, Oriented x2 Respiratory: Clear to auscultation bilaterally, Normal air movement Cardiovascular: Regular rate/rhythm, Normal S1 S2, No murmurs Gastrointestinal: Normal bowel sounds, Soft and benign, Non-distended, No tend erness Musculoskeletal: No clubbing, No swelling, No tenderness Neurological: Sensation intact, Cranial nerves 3-12 intact; mentation improving Assessment & Plan - Problems (Diagnosis) (1) Hyponatremia secondary to SIADH Current Visit: Yes Status: Acute (2) COVID-19 Current Visit: Yes Status: Acute - Plan Continue with plan of care as mentioned below: 1. Sodium stable. Continue with sodium tablets and diuretics; arrange for discharge in the morning 2. Monitor sodium daily; stabilized 3. Nephrology consultation appreciated; outpatient follow-up 4. Monitor neurologic status closely; out of bed and ambulate 5. Ambulated with minimal assistance. Discharge with home health 6. GI and DVT prophylaxis
--- NOTE | 2021-03-22 01:17 | P.DS ---
Discharge Date: 03/22/21 Primary Care Provider: None Reason for Admission: Hyponatremia, seizure - Problems (1) Hyponatremia Current Visit: Yes Status: Acute (2) COVID-19 Current Visit: Yes Status: Acute Vital Signs/Physical Exam: Temp Pulse Resp BP Pulse Ox 96.9 F 71 14 117/60 99 03/22/21 00:00 03/22/21 00:00 03/22/21 00:00 03/22/21 00:00 03/22/21 00:00 Laboratory Data at Discharge: WBC 10.40 K/uL (4.3-10.9) D 03/21/21 04:25 Hgb 11.1 g/dL (12.0-15.0) L 03/21/21 04:25 Hct 33.7 % (36.0-45.0) L 03/21/21 04:25 Plt Count 229 K/uL (152-406) 03/21/21 04:25 PT 11.4 SECONDS (9.5-12.5) 03/17/21 18:29 INR 0.99 03/17/21 18:29 APTT 31.6 SECONDS (24.3-36.9) 03/17/21 18:29 Sodium Cancelled 03/21/21 19:00 Potassium Cancelled 03/21/21 19:00 BUN Cancelled 03/21/21 19:00 Creatinine Cancelled 03/21/21 19:00 Glucose Cancelled 03/21/21 19:00 Uric Acid 4.6 mg/dL (2.6-6.0) 03/18/21 08:10 Phosphorus 2.8 mg/dL (2.5-4.9) 03/21/21 04:25 Magnesium 2.0 mg/dL (1.8-2.4) 03/21/21 04:25 Total Bilirubin 0.5 mg/dL (0.2-1.0) 03/18/21 18:51 AST 31 U/L (15-37) 03/18/21 18:51 ALT 21 U/L (12-78) 03/18/21 18:51 Alkaline Phosphatase 76 U/L (45-117) 03/18/21 18:51 Triglycerides 51 mg/dL (<150) 03/18/21 04:56 Cholesterol 185 mg/dL (<200) 03/18/21 04:56 HDL Cholesterol 83 mg/dL (40-60) H 03/18/21 04:56 Cholesterol/HDL Ratio 2.23 03/18/21 04:56 Amylase 66 U/L (25-115) 03/17/21 18:29 Lipase 64 U/L (73-393) L 03/17/21 18:29 Home Medications: Enalapril [Vasotec] 5 mg PO BID 03/17/21 Followup: NONE,NONE [Primary Care Provider] -
[2021-03-22 05:17] LABS: Albumin 2.5 g/dL (3.4-5.0); Phosphorus 3.4 mg/dL (2.5-4.9); Potassium 3.7 mmol/L (3.5-5.1)
[2021-03-22] MEDS ORDERED: POTASSIUM 25 MEQ EFFERV TAB PO ONE (05:39)
[2021-03-22] MEDS: INSULIN -REGULAR HUMAN 50 UNIT/0.5 ML ML SQ SCH ×2 (07:22→11:30)
--- NOTE | 2021-03-22 08:23 | P.PN ---
Subjective Date of Service: 03/23/21 Primary Care Provider: None Chief Complaint: Hyponatremia, seizure Subjective: Other (No c/o N/V/D.) Physical Examination - Vital Signs Temperature: 96.7 F Blood Pressure: 133/60 Pulse: 77 Respirations: 17 Pulse Ox (%): 97 - Physical Exam General: In no apparent distress HEENT: Atraumatic, Normocephalic Neck: Supple, JVD not distended Respiratory: Clear to auscultation bilaterally Cardiovascular: No rubs, No murmurs Gastrointestinal: Soft and benign, Non-distended Musculoskeletal: No clubbing Integumentary: No rashes Neurological: Normal speech, Normal tone Urinary: Other (No bladder distention) External genitalia: Deferred Rectal: Deferred - Studies Medications List Reviewed: Yes Assessment And Plan - Plan 1. Hyponatremia secondary to high ADH state +/- low solute intake. Improved. Cont lasix & NaCl tabs. Advised on adeq po solid food intake. 2. ? Seizure. Not definitely clear if seizure triggered by hyponatremia or something else. Will defer to primary team if needing to anti-epileptic + Neurology clinic referral. 3. Htn. BP better controlled. Continue current BP med regimen. Hold ACEI or ARB. 4. COVID infection. Mngt per primary team. 5. Anemia. Monitor H/H. Further workup as outpt. 6. Dispo. Dc today. F/u in renal clinic.
[2021-03-22 08:26] VITALS: O2SAT 100
[2021-03-22] MEDS: ENOXAPARIN 40 MG/0.4 ML SQ SCH (08:33)
[2021-03-22] MEDS: SODIUM CHLORIDE 1 GM TAB PO SCH ×2 (08:33→13:19)
[2021-03-22] MEDS: carvediloL 6.25 MG TAB PO SCH (08:33)
[2021-03-22] MEDS: FUROSEMIDE 20 MG TABLET PO SCH (08:33)
[2021-03-23 07:43] VITALS: BP 133/60; TEMP 96.7
== END 2021-03-22 16:01 | disposition home health service (06) | DRG 643 ==
LOC: ER 18:16 → ERHOLD 20:10 → 3RD-ICU 21:58
PROVIDERS: ADMIT Family Medicine; ATTEND Family Medicine
DX: E22.2 Syndrome of inappropriate secretion of antidiuretic hormone (principal); U07.1 COVID-19; I10 Essential (primary) hypertension; E87.6 Hypokalemia; R56.9 Unspecified convulsions; E83.42 Hypomagnesemia; E83.39 Other disorders of phosphorus metabolism; E03.9 Hypothyroidism, unspecified; E11.9 Type 2 diabetes mellitus without complications; D64.9 Anemia, unspecified
CPT/HCPCS: 36415; 51702; 70450; 71045; 72125; 80048; 80053; 80061; 80069; 80076; 81003; 81015; 82150; 82533; 82550; 82553; 82570; 82947; 83605; 83690; 83735; 83930; 83935; 84100; 84132; 84145; 84156; 84300; 84439; 84443; 84484; 84550; 85025; 85610; 85730; 87040; 87077; 87086; 87088; 87186; 87205; 96374; 99285; J1650; J2597; J3475; J3480; J7040; J7131; Q2009; U0003